=== PATIENT | female | born 1995 | race Caucasian/White ===

== ENCOUNTER 2020-07-12 18:34 | Emergency (ER) | payer OTHER ==
--- NOTE | 2020-07-12 20:09 | ER Document Report ---
ED Medical Screen (RME) - General Chief Complaint: Abdominal Pain Stated Complaint: ABDOMINAL PAIN Time Seen by Provider: 07/12/20 20:02 - HPI Notes: 07/12/20 20:10 25-year-old female 8 weeks G1, P0 presents to the emergency room today with complaints of right pelvic pain for the last 3 days. Patient reports she has had some vaginal bleeding that was "like dried blood" today and increasing pelvic pain. 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 Denies any fevers chills, chest pain, shortness of breath, nausea vomiting diarrhea. States pain is becoming progressive I have greeted and performed a rapid initial assessment of this patient. A comprehensive ED assessment and evaluation of the patient, analysis of test results and completion of the medical decision making process will be conducted by additional ED providers. PHYSICAL EXAMINATION: GENERAL: Well-appearing, well-nourished and in no acute distress. CV: s1, s2 regular LUNGS: No respiratory distress abd: R pelvic pain. no cva tenderness on palpation Physical Exam - Vital signs Vitals: Temp Pulse Resp BP Pulse Ox 97.9 F 89 16 152/84 H 100 07/12/20 18:50 07/12/20 18:50 07/12/20 18:50 07/12/20 18:50 07/12/20 18:50 Course - Vital Signs Vital signs: Temp Pulse Resp BP Pulse Ox 97.9 F 89 16 152/84 H 100 07/12/20 18:50 07/12/20 18:50 07/12/20 18:50 07/12/20 18:50 07/12/20 18:50
[2020-07-12 23:57] LABS: ABSOLUTE BASOPHILS # (AUTO) 0.1 10^3/uL (0.0-0.2); ABSOLUTE EOSINOPHILS # (AUTO) 0.1 10^3/uL (0.0-0.6); ABSOLUTE LYMPHOCYTES (AUTO) 3.6 10^3/uL (0.5-4.7); ABSOLUTE MONOCYTES (AUTO) 0.9 10^3/uL (0.1-1.4); ABSOLUTE NEUT (AUTO) 9.8 10^3/uL (1.7-8.2); BASOPHILS % (AUTO) 0.5 % (0-2); EOSINOPHILS % (AUTO) 0.7 % (0-6); HEMATOCRIT 42.5 % (36.0-47.0); HEMOGLOBIN 14.5 g/dL (12.0-15.5); LYMPHOCYTES % (AUTO) 24.7 % (13-45); MEAN CORPUSCULAR HEMOGLOBIN 29.7 pg (27.0-33.4); MEAN CORPUSCULAR HGB CONC 34.2 g/dL (32.0-36.0); MEAN CORPUSCULAR VOLUME 87 fl (80-97); MONOCYTES % (AUTO) 6.2 % (3-13); PLATELET COUNT 224 10^3/uL (150-450); RED CELL DISTRIBUTION WIDTH 13.3 % (11.5-14.0); SEGMENTED NEUTROPHILS % (AUTO) 67.9 % (42-78); TOTAL CELLS COUNTED % (AUTO) 100 %; WHITE BLOOD COUNT 14.5 10^3/uL (4.0-10.5)
[2020-07-12 23:59] LABS: APPEARANCE,URINE CLEAR; BILIRUBIN,URINE NEGATIVE (NEGATIVE); COLOR,URINE YELLOW; GLUCOSE, URINE NEGATIVE (NEGATIVE); KETONES,URINE TRACE mg/dL (NEGATIVE); LEUKOCYTE ESTERASE,URINE NEGATIVE (NEGATIVE); NITRITE,URINE NEGATIVE (NEGATIVE); PROTEIN,URINE NEGATIVE (NEGATIVE); URINE SPECIFIC GRAVITY 1.008; UROBILINOGEN,URINE NEGATIVE mg/dL (<2.0)
[2020-07-13 00:10] LABS: ALBUMIN 4.4 g/dL (3.5-5.0); ALKALINE PHOSPHATASE 47 U/L (38-126); ANION GAP 11 (5-19); ASPARTATE AMINO TRANSFERASE 24 U/L (14-36); BILIRUBIN,DIRECT 0.1 mg/dL (0.0-0.4); BILIRUBIN,TOTAL 0.6 mg/dL (0.2-1.3); BLOOD UREA NITROGEN 10 mg/dL (7-20); CALCIUM 9.9 mg/dL (8.4-10.2); CARBON DIOXIDE 23 mmol/L (22-30); CHLORIDE 102 mmol/L (98-107); GLUCOSE 91 mg/dL (75-110); POTASSIUM 3.9 mmol/L (3.6-5.0); TOTAL PROTEIN 7.4 g/dL (6.3-8.2)
--- NOTE | 2020-07-13 00:53 | ER Document Report ---
ED GI/ - General Chief Complaint: Vaginal Bleeding Stated Complaint: ABDOMINAL PAIN Time Seen by Provider: 07/12/20 20:02 Primary Care Provider: JOS EA ARIZA FNP [Primary Care Provider] - Follow up as needed Notes: Patient is a 25-year-old female, at 8 weeks gestation by last menstrual period, that comes emergency department for chief complaint of right lower abdominal/pelvic pain. She states that she has had pain on and off for about 3 days, she also had spotting initially and then again today but she denies current vaginal bleeding. She denies flank pain, dysuria, vaginal discharge, fever, vomiting. She states she is constipated and she occasionally gets nausea with morning sickness but denies any other complaints. Past medical history of ureteral surgery because of reflux when she was 8, she is on vitamins, she denies any medical history otherwise. - Related Data Allergies/Adverse Reactions: No Known Allergies Allergy (Unverified 07/12/20 23:42) Home Medications: PRE- Past Medical History - General Information source: Patient - Social History Smoking Status: Never Smoker Frequency of alcohol use: Occasional Drug Abuse: None Lives with: Family Family History: Reviewed & Not Pertinent - Medical History Medical History: Negative Review of Systems - Review of Systems Constitutional: No symptoms reported EENT: No symptoms reported Cardiovascular: No symptoms reported Respiratory: No symptoms reported Gastrointestinal: See HPI Genitourinary: No symptoms reported Female Genitourinary: See HPI Musculoskeletal: No symptoms reported Skin: No symptoms reported Hematologic/Lymphatic: No symptoms reported Neurological/Psychological: No symptoms reported Physical Exam - Vital signs Vitals: Temp Pulse Resp BP Pulse Ox 97.9 F 89 16 152/84 H 100 07/12/20 18:50 07/12/20 18:50 07/12/20 18:50 07/12/20 18:50 07/12/20 18:50 - Notes Notes: GENERAL: Alert, interacts well. No acute distress. HEAD: Normocephalic, atraumatic. EYES: Pupils equal, round, and reactive to light. Extraocular movements intact. ENT: Oral mucosa moist, tongue midline. Oropharynx unremarkable. Airway patent. LUNGS: Clear to auscultation bilaterally, no wheezes, rales, or rhonchi. No respiratory distress. Non-tender chest wall. HEART: Regular rate and rhythm. No murmur ABDOMEN: No specific tenderness noted, no guarding, rigidity, distention. Bowel sounds are unremarkable. EXTREMITIES: Moves all 4 extremities spontaneously. No edema, normal radial and dorsalis pedis pulses bilaterally. No cyanosis. BACK: no cervical, thoracic, lumbar midline tenderness. No saddle anesthesia, normal distal neurovascular exam. Moves all extremities in full range of motion. NEUROLOGICAL: Alert and oriented x3. Normal speech. Cranial nerves II through XII grossly intact. Strength 5/5 in all extremities. PSYCH: Normal affect, normal mood. SKIN: Warm, dry, normal turgor. No rashes or lesions noted. Course - Re-evaluation Re-evalutation: Patient is talkative and well-appearing. Abdominal exam is unremarkable without noted tenderness. Ultrasound was done to confirm intrauterine , this was noted with heartbeat, peritesticular hemorrhage, measuring 8 weeks and 1 day. hCG elevated. RhoGam is not indicated. Remaining work-up unremarkable. On reevaluation patient with no symptoms currently. Discussed all details at length, provided with copies of her reports, discussed follow-up and return precautions. Patient declines nausea medication. Patient states appreciation and agreement. - Vital Signs Vital signs: Temp Pulse Resp BP Pulse Ox 98.3 F 81 14 123/72 100 07/13/20 03:25 07/13/20 03:25 07/13/20 03:25 07/13/20 03:25 07/13/20 03:25 - Laboratory Result Diagrams: 07/12/20 23:30 07/12/20 23:30 Laboratory results interpreted by me: 07/12/20 07/12/20 07/12/20 23:30 23:30 23:30 WBC 14.5 H Absolute Neuts (auto) 9.8 H Sodium 135.7 L Beta HCG, Quant 438653.00 H Urine Ketones TRACE H Discharge - Discharge Clinical Impression: Vaginal bleeding affecting early Condition: Stable Disposition: HOME, SELF-CARE Additional Instructions: Your ultrasound shows a living in the uterus with a perigestational hemorrhage as we discussed. It is important that you perform pelvic rest, avoid any intense physical activity (lifting, jumping, running, spectral", etc.) for at least 5 to 7 days or until cleared by with [facility]. You can take Tylenol if needed for pain. Follow-up with [facility] with your ultrasound report, hCG lab, and blood type forms. Return if you worsen including severe worsening pain, heavy bleeding, passing out, uncontrolled vomiting, or any other concerning or worsening symptoms. Forms: Return to Work Referrals: JOSE A ARIZA FNP [Primary Care Provider] - Follow up as needed
--- NOTE | 2020-07-13 02:25 | RADIOLOGY REPORT (SQ) ---
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 TECHNIQUE: Multiple hurtado scale and color Doppler images of the pelvis were obtained transabdominally and transvaginally. FINDINGS: The uterus measures 9.5 x 5.3 x 6.3 cm. A single gestational sac is seen within the uterus. The sac contains both a yolk sac and an embryo. The crown-rump length measures 1.7 cm corresponding to 8 weeks and 1 day(s). Cardiac motion is present with a heart rate of 168 bpm. Trace perigestational hemorrhage is seen encompassing less than 25% of the sac surface. The cervix measures at least 2.6 cm in length. The cervix measures 2.6 cm in length. The right ovary measures 3.2 x 2.2 x 2.6 cm. The left ovary is not visualized, and is likely obscured by overlying bowel gas. Normal arterial waveforms were obtained from both ovaries. No free fluid is seen in the cul-de-sac. IMPRESSION: Single live intrauterine at 8 weeks and 1 day(s) consistent with an estimated due date of 02/21/2021. This is different than the prior estimated due date of 02/22/2021. There is trace perigestational hemorrhage which may account for the vaginal bleeding. Obstetric follow up for routine care should be performed.
[2020-07-13 03:27] VITALS: BP 123/72
== END 2020-07-13 03:25 | disposition home or self-care (01) ==
LOC: ER 18:34
DX: O20.9 Hemorrhage in early pregnancy, unspecified (principal); O99.611 Diseases of the digestive system complicating pregnancy, first trimester; K59.00 Constipation, unspecified; O26.891 Other specified pregnancy related conditions, first trimester; R10.2 Pelvic and perineal pain; R11.0 Nausea; Z79.899 Other long term (current) drug therapy; Z3A.08 8 weeks gestation of pregnancy
CPT/HCPCS: 36415; 76817; 80053; 81001; 84702; 85025; 86900; 86901; 99284